=== PATIENT | female | born 1985 | race Caucasian/White ===

== ENCOUNTER 2017-05-09 18:50 | Emergency (ER) | payer MEDICAID ==
[~2017-05-09] VITALS: Ht 165.1 cm; Wt 77.5 kg
[~2017-05-09 18:50] MED LIST: AMIT100 PO; CIPR500T4 PO; CLON1 PO; FLUO20SO3 PO; SUBO8MIS SL; TRAZ300T2 PO
[2017-05-09 18:53] VITALS: BP 132/81; PULSE 89; RESP 20; TEMP 98.4; O2SAT 97
[2017-05-09 20:38] VITALS: BP 140/90; PULSE 108; RESP 18; O2SAT 97
[2017-05-09] MEDS ORDERED: AMIT150T PO (20:51)
[2017-05-09] MEDS ORDERED: PROZ40CA PO (20:51)
[2017-05-09] MEDS ORDERED: KLON2TAB PO (20:51)
[2017-05-09] MEDS ORDERED: LAMO25 PO (20:51)
[2017-05-09] MEDS ORDERED: ACETAMINOPHEN 500 MG CPLT PO ONE (21:00)
[2017-05-09] MEDS ORDERED: IBUPROFEN 400 MG TAB PO ONE (21:00)
--- NOTE | 2017-05-09 21:20 | PD ---
HPI Chief Complaint: Fall Time Seen by Provider: 20:41 Travel History International Travel<30 days: No Contact w/Intl Traveler<30days: No Traveled to known affect area: No History of Present Illness HPI Is a 31-year-old woman presents to the emergency department after a fall. She has a history of chronic pancreatitis. She's also had panic attacks and anxiety. She's been more depressed recently. Mom states her mental status is been a little bit morphology she's been working through rhythm with a chronic pancreatitis and what to do. She is not on any chronic opiates now. About 3 hours ago she had a slip and fall backwards and cracked her head. Mom states that she had really pretty hard. She was dazed afterwards. She still not acting quite right. She denies any neck pain. She otherwise has been feeling in her usual state of health, albeit somewhat poorly for the past several weeks. History Past Medical History Narrative Medical Chronic pancreatitis Panic attacks LMP: 04/23/17 Social History Alcohol Use: No (denies) Tobacco Use: No Allergies-Medications (Allergen,Severity, Reaction): Coded Allergies: Sulfa (Unverified Allergy, Intermediate, 05/12/15) hives Reported Meds & Prescriptions Reported Meds & Active Scripts Active Reported Lamictal (Lamotrigine) 25 Mg Tab 25 Mg PO DAILY Prozac (Fluoxetine HCl) 40 Mg Cap 60 Mg PO DAILY Klonopin (Clonazepam) 2 Mg Tab 2 Mg PO HS Amitriptyline (Amitriptyline HCl) 150 Mg Tab 150 Mg PO HS Review of Systems Except as stated in HPI: all other systems reviewed are Neg Physical Exam Narrative GENERAL: 31 year-old woman, tearful, nontoxic, no acute distress. SKIN: Focused skin assessment warm/dry. HEAD: Normocephalic. There is soft contusion on the posterior occiput. NECK: No midline tenderness. Full painless range of motion. CARDIOVASCULAR: Regular rate and rhythm. No murmur appreciated. RESPIRATORY: No accessory muscle use. Clear to auscultation. Breath sounds equal bilaterally. GASTROINTESTINAL: Abdomen soft, non-tender, nondistended. Hepatic and splenic margins not palpable. MUSCULOSKELETAL: No obvious deformities. No clubbing. No cyanosis. No edema. NEUROLOGICAL: Awake and alert. No obvious cranial nerve deficits. Motor grossly within normal limits. Normal speech. PSYCHIATRIC: Appropriate mood and affect; insight and judgment normal. Data Data Last Documented VS Vital Signs Date Time Temp Pulse Resp B/P Pulse Ox O2 Delivery O2 Flow Rate FiO2 05/09/17 20:38 108 17 97 Room Air 05/09/17 20:38 140/90 05/09/17 18:[address] Brain W/O Iv Contrast(Rout) (05/09/17 ) Acetaminophen (Tylenol) (05/09/17 21:00) Ibuprofen (Motrin) (05/09/17 21:00) MDM Medical Decision Making Medical Screen Exam Complete: Yes Emergency Medical Condition: Yes Interpretation(s) CT head: Negative. Differential Diagnosis Head injury, neck injury, unsteadiness, other Narrative Course Medical decision making INITIAL: 31-year-old woman who presents to the emergency department complaining of slip and fall. She says she had knocked out but her mom says she was just sort of dazed. She's been not feeling well with increased depression symptoms in acting out of sorts associated think with her chronic pancreatitis in her chronic pain. We'll check CT head, likely discharge. Diagnosis Primary Impression: Closed head injury Additional Instructions: Old your primary doctor in return home. Return to the emergency department for any new or worsening symptoms. Disposition: 01 DISCHARGE HOME Condition: Stable Eloy Logan MD May 09, 2017 21:20
--- NOTE | 2017-05-09 22:11 | RADRPT ---
EXAM DATE/TIME: 05/09/2017 21:33 [facility] COMPARISON: CT BRAIN W/O CONTRAST, May 12, 2015, 15:45. INDICATIONS : Trauma, fell and hit back of head. RADIATION DOSE: 36.58 CTDIvol (mGy) MEDICAL HISTORY : Seizures. Pancreatitis. SURGICAL HISTORY : Cholecystectomy. ENCOUNTER: Initial ACUITY: 1 day PAIN SCALE: 10/10 LOCATION: cranial TECHNIQUE: Multiple contiguous axial images were obtained of the head. Using automated exposure control and adj ustment of the mA and/or kV according to patient size, radiation dose was kept as low as reasonably a chievable to obtain optimal diagnostic quality images. DICOM format image data is available electro nically for review and comparison. FINDINGS: CEREBRUM: The ventricles are normal for age. No evidence of midline shift, mass lesion, hemorrhage or acute in farction. No extra-axial fluid collections are seen. POSTERIOR FOSSA: The cerebellum and brainstem are intact. The 4th ventricle is midline. The cerebellopontine angle i s unremarkable. EXTRACRANIAL: The visualized portion of the orbits is intact. SKULL: The calvaria is intact. No evidence of skull fracture. CONCLUSION: Normal examination. Andre Costa MD on May 09, 2017 at 22:10 Board Certified Radiologist. This report was verified electronically.
[2017-05-09 22:47] VITALS: BP 132/75
== END 2017-05-09 22:48 | disposition home or self-care (01) ==
LOC: NEPE 18:50
DX: S09.90XA Unspecified injury of head, initial encounter (principal); Z87.19 Personal history of other diseases of the digestive system; Z86.59 Personal history of other mental and behavioral disorders; W01.0XXA Fall on same level from slipping, tripping and stumbling without subsequent striking against object, initial encounter
CPT/HCPCS: 70450; 99284